=== PATIENT | male | born 1940 | race Caucasian/White ===

== ENCOUNTER 2024-02-21 14:33 | Emergency (ER) | payer MEDICARE, BC, SELFPAY ==
[2024-02-21 14:42] VITALS: BP 136/70; PULSE 63; RESP 18; TEMP 36.4; O2SAT 94; BMI 36.5
--- NOTE | 2024-02-21 15:08 | ED.GENADULT ---
HPI - General Adult General Date Seen: 02/21/24 <Krystle Rolon MD - Last Filed: 02/23/24 05:57> Chief complaint: Back Injury/Pain <Krystle Rolon MD - Last Filed: 02/23/24 05:57> Stated complaint: Lower back and left leg pain-onset after pt <Krystle Rolon MD - Last Filed: 02/23/24 05:57> Time Seen by Provider: 02/21/24 14:38 <Krystle Rolon MD - Last Filed: 02/23/24 05:57> Source: patient and RN notes reviewed <Krystle Rolon MD - Last Filed: 02/23/24 05:57> Mode of arrival: ambulatory <Krystle Rolon MD - Last Filed: 02/23/24 05:57> Limitations: no limitations <Krystle Rolon MD - Last Filed: 02/23/24 05:57> History of Present Illness HPI narrative: Patient is an 83-year-old male, new to our system, who presents with acute on chronic back pain and left leg pain. He says he has had problems with his back for a very long time. Has been going to physical therapist for his shoulder and recently the therapist started suggesting doing some exercises for his back. At 1st he thought that was helping but now he thinks it has made his back worse. He has pain in his left thigh which feels like a charley horse, but that pain seems to radiate now down below the knee and he also has pain in the left lumbar region that radiates down into the gluteal region and leg. He has a history of problems with sciatica in the right, it sounds like he has had previous injections for that. 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 He denies any symptoms such as fever, chills, sweats, unexpected weight loss, weakness or numbness, bowel bladder changes. He has a history of prostatic hypertrophy and does well on medication. Denies any history of malignancy. He has been taking some leftover Percocet without relief. <Krystle Rolon MD - Last Filed: 02/23/24 05:57> Related Data Home medications: Home Medications ?Medication ?Instructions ?Recorded ?Confirmed Fish Oil 02/21/24 amlodipine 10 mg tablet 10 mg PO DAILY 02/21/24 02/21/24 aspirin 81 mg tablet,delayed 81 mg PO DAILY 02/21/24 02/21/24 release (Adult Aspirin Regimen) duloxetine 02/21/24 finasteride 5 mg tablet 5 mg PO DAILY 02/21/24 02/21/24 lisinopril 10 1 tab PO DAILY 02/21/24 02/21/24 mg-hydrochlorothiazide 12.5 mg tablet metoprolol tartrate 02/21/24 terazosin 5 mg capsule 5 mg PO DAILY 02/21/24 02/21/24 <Krystle Rolon MD - Last Filed: 02/23/24 05:57> Allergies/adverse reactions: Allergies Allergy/AdvReac Type Severity Reaction Status Date / Time No Known Drug Allergies Allergy Verified 02/21/24 14:51 <Krystle Rolon MD - Last Filed: 02/23/24 05:57> Review of Systems Status of ROS: Reports: 10 or more systems reviewed and unremarkable except as noted in History and below <Krystle Rolon MD - Last Filed: 02/23/24 05:57> [facility] Social History: Social History Smoking Status: Former smoker How often do you have a drink containing alcohol: 4 or more times a week AUDIT-C Alcohol total score: 4 Non-prescribed substance use: denies use <Krystle Rolon MD - Last Filed: 02/23/24 05:57> Exam Narrative: Exam Narrative: Vital signs as noted above. In general, an alert, nontoxic male. He is sitting on the bed, winces a little bit with movement. Head: Normocephalic, atraumatic. Eyes: Pupils are equal reactive. Extraocular movements are full. Conjunctivae are normal. ENT: Mucous membranes are moist. Neck: Supple without lymphadenopathy. Heart: Regular rate and rhythm. No murmur or rub. Lungs: Clear bilaterally. No increased work of breathing, crackles or wheezes. Abdomen: Obese, soft and nontender. Extremities: Well perfused. No edema. No calf tenderness. Pulses intact. Neurologic: Patient is alert and oriented to person and place. Speech is fluent. Face is symmetric. Moves all extremities equally. Strength is 5 of 5 in bilateral extremities, sensation is intact to light touch. Affect: Normal. Skin: Warm and dry. Well perfused. <Krystle Rolon MD - Last Filed: 02/23/24 05:57> Const: Vital Signs, click to edit/add: Vital Signs - 24 hr 02/21/24 14:42 Temperature 97.6 F Pulse Rate [Pulse Oximeter] 63 Respiratory Rate 18 Blood Pressure [Ri ght Upper Arm] 136/70 Pulse Oximetry 94 Oxygen Delivery Me thod Room Air <Krystle Rolon MD - Last Filed: 02/23/24 05:57> Vital Signs, click to edit/add: Vital Signs - 24 hr 02/21/24 14:42 Temperature 97.6 F Pulse Rate [Pulse Oximeter] 63 Respiratory Rate 18 Blood Pressure [Ri ght Upper Arm] 136/70 Pulse Oximetry 94 Oxygen Delivery Me thod Room Air <Alaina Wynne MD - Last Filed: 02/21/24 16:58> Documenting provider has reviewed patient's vital signs: yes <Krystle Rolon MD - Last Filed: 02/23/24 05:57> Course Course ED Course: Patient presents with back pain, some left leg pain possibly suggesting radiculopathy. I do not see any changes in the leg to raise suspicion for DVT, cellulitis, or other problem specifically with the leg. He does not have a history of diabetes, I think it is reasonable to give him some steroid, pain management with morphine. Given his age and lack of prior records here have elected to do a CT scan of the lumbar spine, he does not think that he would be able to lay flat for MRI. He does have a history of abdominal aortic aneurysm, which has been stented. Back pain is not suggestive of aortic pathology. CT scan signed out to oncoming doctor. Plan as above with outpatient follow-up assuming CT does not show findings needing alternative management. <Krystle Rolon MD - Last Filed: 02/23/24 05:57> Vital Signs Vital signs: Initial Vital Signs Temperature 97.6 F 02/21/24 14:42 Temperature Source Temporal Artery Scan 02/21/24 14:42 Pulse Rate 63 02/21/24 14:42 Respiratory Rate 18 02/21/24 14:42 Blood Pressure 136/70 02/21/24 14:42 Blood Pressure Mean 92 02/21/24 14:42 Blood Pressure Position Sitting 02/21/24 14:42 Pulse Oximetry 94 02/21/24 14:42 Oxygen Delivery Method Room Air 02/21/24 14:42 Vital Signs Temperature 97.6 F 02/21/24 14:42 Pulse Rate 63 02/21/24 14:42 Respiratory Rate 18 02/21/24 14:42 Blood Pressure 136/70 02/21/24 14:42 Pulse Oximetry 94 02/21/24 14:42 Oxygen Delivery Method Room Air 02/21/24 14:42 Temperature 97.6 F 02/21/24 14:42 Pulse Rate 63 02/21/24 14:42 Respiratory Rate 18 02/21/24 14:42 Blood Pressure 136/70 02/21/24 14:42 Pulse Oximetry 94 02/21/24 14:42 Oxygen Delivery Method Room Air 02/21/24 14:42 <Krystle Rolon MD - Last Filed: 02/23/24 05:57> Initial Vital Signs Temperature 97.6 F 02/21/24 14:42 Temperature Source Temporal Artery Scan 02/21/24 14:42 Pulse Rate 63 02/21/24 14:42 Respiratory Rate 18 02/21/24 14:42 Blood Pressure 136/70 02/21/24 14:42 Blood Pressure Mean 92 02/21/24 14:42 Blood Pressure Position Sitting 02/21/24 14:42 Pulse Oximetry 94 02/21/24 14:42 Oxygen Delivery Method Room Air 02/21/24 14:42 Vital Signs Temperature 97.6 F 02/21/24 14:42 Pulse Rate 63 02/21/24 14:42 Respiratory Rate 18 02/21/24 14:42 Blood Pressure 136/70 02/21/24 14:42 Pulse Oximetry 94 02/21/24 14:42 Oxygen Delivery Method Room Air 02/21/24 14:42 Temperature 97.6 F 02/21/24 14:42 Pulse Rate 63 02/21/24 14:42 Respiratory Rate 18 02/21/24 14:42 Blood Pressure 136/70 02/21/24 14:42 Pulse Oximetry 94 02/21/24 14:42 Oxygen Delivery Method Room Air 02/21/24 14:42 <Alaina Wynne MD - Last Filed: 02/21/24 16:58> Medications Administered Medications: Discontinued Medications Generic Name Dose Route Start Last Admin Trade Name Freq PRN Reason Stop Dose Admin Acetaminophen 1,000 mg 02/21/24 15:06 02/21/24 15:25 Acetaminophen 500 Mg Tablet PO 02/21/24 15:07 1,000 mg ONCE ONE Administration Methylprednisolone Sodium Succinate 125 mg 02/21/24 15:12 02/21/24 15:41 Methylprednisolone Sod Succ 62.5 Mg/Ml (125) IVP 02/21/24 15:13 125 mg ONCE ONE Administration Morphine Sulfate 4 mg 02/21/24 15:06 02/21/24 15:25 Morphine 4 Mg/Ml Inj IVP 02/21/24 15:07 4 mg ONCE ONE Administration Morphine Sulfate 4 mg 02/21/24 15:48 02/21/24 15:59 Morphine 4 Mg/Ml Inj IVP 02/21/24 15:49 4 mg ONCE ONE Administration <Krystle Rolon MD - Last Filed: 02/23/24 05:57> Discontinued Medications Generic Name Dose Route Start Last Admin Trade Name Freq PRN Reason Stop Dose Admin Acetaminophen 1,000 mg 02/21/24 15:06 02/21/24 15:25 Acetaminophen 500 Mg Tablet PO 02/21/24 15:07 1,000 mg ONCE ONE Administration Methylprednisolone Sodium Succinate 125 mg 02/21/24 15:12 02/21/24 15:41 Methylprednisolone Sod Succ 62.5 Mg/Ml (125) IVP 02/21/24 15:13 125 mg ONCE ONE Administration Morphine Sulfate 4 mg 02/21/24 15:06 02/21/24 15:25 Morphine 4 Mg/Ml Inj IVP 02/21/24 15:07 4 mg ONCE ONE Administration Morphine Sulfate 4 mg 02/21/24 15:48 02/21/24 15:59 Morphine 4 Mg/Ml Inj IVP 02/21/24 15:49 4 mg ONCE ONE Administration <Alaina Wynne MD - Last Filed: 02/21/24 16:58> Medical Decision Making MDM Narrative Medical decision making narrative: I was asked to follow-up on the CT lumbar spine resolved from this patient. CT results do show superiorly migrated left foraminal disc extrusion likely impinges the exiting left L3 nerve root. This certainly could explain his left-sided radicular symptoms. At this time patient will be sent home with oxycodone and a prednisone taper. Encouraged to follow up with ad operations specialist or his primary care this coming week. <Alaina Wynne MD - Last Filed: 02/21/24 16:58> Imaging Data CT lumbar spine: Attestation: I have reviewed the pertinent imaging results. <Alaina Wynne MD - Last Filed: 02/21/24 16:58> Radiologist's impression: Procedure(s): CT lumbar spine wo con Accession Number(s): [id number] cc: Krystle Rolon M.D.; Vasiliy Gomez PA-C~ For Patients: As a result of the Century Cures Act, medical imaging exams and procedure reports are released immediately into your electronic medical record. You may view this report before your referring provider. If you have questions, please contact your health care provider. INDICATION: Left radiculopathy. TECHNIQUE: Noncontrast CT images of the lumbar spine. COMPARISON: None. FINDINGS: The lumbar lordosis is preserved. Slight rightward lumbar curvature. Vertebral body heights are maintained. No acute fracture. Small to moderate age-indeterminate L2 inferior endplate Schmorl`s node deformity. T12-L1: No spinal canal or neural foraminal narrowing. L1-2: Trace retrolisthesis. No spinal canal or neural foraminal stenosis. L2-3: No spinal canal or neural foraminal stenosis. L3-4: Posterior disc bulge. Mild facet arthropathy. Dorsal epidural fat prominence. Mild spinal canal narrowing. Superiorly migrated left foraminal disc extrusion likely impinges the exiting left L3 nerve root. Severe left and mild right neural foraminal narrowing. L4-5: Mild grade 1 anterolisthesis. Posterior disc bulge. Moderately advanced facet arthropathy. Mild spinal canal narrowing. Wral-va-dvndvlir bilateral neural foraminal narrowing. L5-S1: Mild retrolisthesis. Disc height loss. Posterior disc bulge. Moderate facet arthropathy. No spinal canal narrowing. [id number] right and mild left neural foraminal narrowing. Sacroiliac joint degenerative changes. Aortoiliac stent graft. IMPRESSION: 1. At L3-4, superiorly migrated left foraminal disc extrusion likely impinges the exiting left L3 nerve root. 2. No high-grade spinal canal stenosis. 3. No acute fracture. <Alaina Wynne MD - Last Filed: 02/21/24 16:58> Discharge Plan Discharge Clinical Impression: Lumbar radiculopathy <Krystle Rolon MD - Last Filed: 02/23/24 05:57> Patient Disposition: Home, Self-Care <Krystle Rolon MD - Last Filed: 02/23/24 05:57> Condition: Improved <Krystle Rolon MD - Last Filed: 02/23/24 05:57> Instructions: Lumbar Radiculopathy (ED) <Krystle Rolon MD - Last Filed: 02/23/24 05:57> Additional Instructions: Tylenol 1000 mg 3 times daily. Oxycodone if needed for uncontrolled pain. Be aware that this medication can cause constipation, dizziness, sleepiness, confusion, use only as needed. Prednisone as prescribed. Please follow-up with your primary provider in [place] or whoever manages your back pain in the next week. Return at any time for worsening such as fevers, weakness, numbness, bowel or bladder changes. Take prednisone as follows: 3 tablets daily for 3 days then 2 tablets daily for 3 days then 1 tablet daily for 3 days. <Krystle Rolon MD - Last Filed: 02/23/24 05:57> Prescriptions: No Action Fish Oil metoprolol tartrate amlodipine 10 mg tablet 10 mg PO DAILY duloxetine aspirin [Adult Aspirin Regimen] 81 mg tablet,delayed release (DR/EC) 81 mg PO DAILY terazosin 5 mg capsule 5 mg PO DAILY lisinopril-hydrochlorothiazide 10-12.5 mg tablet 1 tab PO DAILY finasteride 5 mg tablet 5 mg PO DAILY <Krystle Rolon MD - Last Filed: 02/23/24 05:57> Follow Up/Referrals: Vasiliy Gomez PA-C [Primary Care Provider] - <Krystle Rolon MD - Last Filed: 02/23/24 05:57> Stand Alone Forms: MyHealth Info Instructions <Krystle Rolon MD - Last Filed: 02/23/24 05:57>
[2024-02-21] MEDS: ACETAMINOPHEN 500 MG TABLET 1000 MG PO (15:25)
[2024-02-21] MEDS: MORPHINE 4 MG/ML INJ IVP ×2 (15:25→15:59)
[2024-02-21] MEDS: METHYLPREDNISOLONE SOD SUCC 62.5 MG/ML (125) 125 MG IVP (15:41)
== END 2024-02-21 17:13 | disposition home or self-care (01) ==
PROVIDERS: Emergency Provider Family Medicine; PCP Physician Assistant
DX: M54.16 Radiculopathy, lumbar region (principal)
CPT/HCPCS: 72131; 96374; 96375; 96376; 99283; 99284; A9270; J2270; J2919